=== PATIENT | male | born 1960 | race Hispanic/Latino ===

== ENCOUNTER 2018-03-07 10:03 | Observation (INO) | payer OTHER ==
--- NOTE | 2018-03-07 10:11 | ED PDOC ---
Arrival/HPI - General Chief Complaint: Chest Pain Time Seen by Provider: 03/07/18 10:10 Historian: Patient, Spouse - History of Present Illness Narrative History of Present Illness (Text): 03/07/18 10:15 58 year old male, whose PMH includes hypertension and cardiac catheterization, who presents to the emergency department complaining of non-radiating substernal chest pain rate 7 out of 10 since this morning at 03:00 AM. Patient reports he woke up from the pain and associates this symptom with shortness of breath on exertion, with questionable diaphoresis. Patient states speaking with Dr. Dfuf, his risk officer (prior to emergency department arrival), and was instructed to come to the emergency department for further evaluation. He notes Dr. Duff performed a catheterization 4 years ago, which was negative. Patient denies dizziness, palpitations, headache, LOC, nausea, vomiting, diarrhea, abdominal pain, dysuria, or other complaints. pt is here for further eval. PMD: Dr. Albrecht Gas Operations Analyst: Dr. Duff Time/Duration: 4-6 hours Symptom Onset: Sudden Symptom Course: Unchanged Quality: Pressure, Tightness Severity Level: 7 Activities at Onset: Rest Context: Exertion (shortness of breath), Home Past Medical History - Provider Review Nursing Documentation Reviewed: Yes - Travel History Have you recently traveled outside [place] w/in the past 3 mons?: No - Infectious Disease Hx of Infectious Diseases: None - Tetanus Immunization Tetanus Immunization: Unknown - Past Medical History Past Medical History: No Previous - Cardiac Hx Hypertension: Yes - Psychiatric Hx Depression: No Hx Emotional Abuse: No Hx Physical Abuse: No Hx Substance Use: No - Past Surgical History Past Surgical History: Non-Contributing - Surgical History Hx Tonsillectomy: Yes - Suicidal Assessment Feels Threatened In Home Enviroment: No Family/Social History - Physician Review Nursing Documentation Reviewed: Yes Family/Social History: Unknown Family HX Smoking Status: Never Smoked Hx Alcohol Use: Yes Hx Substance Use: No Hx Substance Use Treatment: No Allergies/Home Meds Allergies/Adverse Reactions: Allergies No Known Allergies Allergy (Verified 03/07/18 10:13) Home Medications: Home Meds Medication Instructions Recorded Confirmed Irbesartan [Avapro] 150 mg PO DAILY 10/30/13 03/07/18 Nebivolol [Bystolic] 10 mg PO DAILY 03/07/18 03/07/18 Pantoprazole Sodium [Protonix] 40 mg PO DAILY 03/07/18 03/07/18 Review of Systems - Review of Systems Constitutional: absent: Fevers Eyes: Normal ENT: absent: Sinus Congestion Respiratory: SOB (on exertion ). absent: Cough Cardiovascular: Chest Pain (non-radiating ) Gastrointestinal: absent: Abdominal Pain, Vomiting Genitourinary Male: absent: Dysuria Musculoskeletal: absent: Back Pain Skin: absent: Rash Neurological: absent: Headache, Dizziness Endocrine: Diaphoresis (possible ) Hemo/Lymphatic: Normal Psychiatric: Normal Physical Exam - Physical Exam Narrative Physical Exam (Text): 03/07/18 General: alert/awake, GCS = 15, oriented x 3, resting in bed, uncomfortable, cooperative, interactive; NAD Head: NC/AT EYE: PERRLA, EOMI, sclera anicteric, no nystagmus, no photophobia; visual field intact b/l Facial: WNL Oral: uvula/tongue are midline, no exudate/lesions, no drooling/stridor, no dysphonia; intact dentitions NECK: intact ROM, no midline tenderness, no nuchal rigidity, no meningeal signs ; no step off Chest: CTA b/l, no w/r/r; no tachypenia, no accessory muscle use noted Chest Wall: no crepitus, no lesions, no gross deformities, no focal tenderness Cardiac: +S1, +S2, no m/r/r, no tachycardia Abdominal: +BS, soft/nd/nt, well nourished/obese patient; no masses/rebound/ guarding/rigidity; no silver's sign, no mcburney's point tenderness Extremities: intact ROM, strength 5/5 grossly intact in all limbs, neurovasc intact b/l; + ambulatory; reflex +2/2; no nestor's sign b/l BACK: no step off, no midline tenderness, NO crepitus, no gross deformities noted; Intact ROM SKIN: cap refill < 1 sec, no ulcerations, no petechiae, no rashes NEURO: CNII-XII WNL, no facial asymmetries, no slurr speech, oriented x 3 NIH stroke scale ~ 0 Psych: normal insight, normal affect; follows command with ease Vital Signs Reviewed: Yes Vital Signs Temp Pulse Resp BP BP Pulse Ox 03/07/18 10:20 177/74 H 03/07/18 10:11 98.1 F 62 16 174/74 H 97 Temperature: Afebrile Blood Pressure: Hypertensive Pulse: Regular Respiratory Rate: Normal Appearance: Positive for: Well-Appearing, Non-Toxic, Uncomfortable Pain Distress: None Mental Status: Positive for: Alert and Oriented X 3 - Systems Exam Head: Present: Atraumatic, Normocephalic Medical Decision Making ED Course and Treatment: 03/07/18 Impression: 58 year old male who appears uncomfortable complaining of chest pain and shortness of breath since 03:00 AM this morning. Differential Diagnosis included but are not limited to: ACS, unlikely dissection/aneurysm, unlikely pulmonary embolism Plan: -- EKG -- Chest X-ray -- Labs -- Aspirin, Nitroglycerin -- Urinalysis -- Reassess and disposition Progress Notes: 03/07/18 11:30 Spoke to , who is the risk officer for patient, and who was made aware and would like to take the patient to the organic lab worker today; Dr Duff states if patient didn't take his Plavix today to give patient his plavix. Would like patient admitted to his PCP. 03/07/18 11:40 Spoke to , hospitalists prevention specialist, made aware and agrees to patient admission under her service. 1200pm pt/family are made aware of pt's medical results agrees with admission/observation pt continues to have mild chest tightness/aches/pain vitals signs: stable Re-evaluation Time: 11:45 Reassessment Condition: Improving,but remains with symptoms - Lab Interpretations Lab Results: 03/07/18 10:30 03/07/18 10:30 Lab Results 03/07/18 10:40: Urine Color Yellow, Urine Appearance Clear, Urine pH 6.0, Ur Specific [place] 1.025, Urine Protein Negative, Urine Glucose (UA) Negative, Urine Ketones Negative, Urine Blood Negative, Urine Nitrate Negative, Urine Bilirubin Negative, Urine Urobilinogen 0.2, Ur Leukocyte Esterase Negative 03/07/18 10:30: PT 12.9 H, INR 1.12, APTT 29.2 03/07/18 10:30: Sodium 143, Potassium 4.4, Chloride 106, Carbon Dioxide 27, Anion Gap 14, BUN 16, Creatinine 0.8, Est GFR ( Amer) > 60, Est GFR (Non- Af Amer) > 60, Random Glucose 103, Calcium 8.9, Magnesium 1.9, Total Bilirubin 1.1, AST 91 H, ALT 203 H, Alkaline Phosphatase 77, Lactate Dehydrogenase 480, Total Creatine Kinase 56, Troponin I < 0.01, NT-Pro-B Natriuret Pep 76.4, Total Protein 7.2, Albumin 4.2, Globulin 3.0, Albumin/Globulin Ratio 1.4 03/07/18 10:30: WBC 4.0 L, RBC 4.99, Hgb 15.7, Hct 43.3, MCV 86.8, MCH 31.5, MCHC 36.3, RDW 13.2, Plt Count 155, MPV 11.6 H, Gran % 47.9 L, Lymph % (Auto) 40.5 H, [place] % (Auto) 9.3 H, Eos % (Auto) 2.0, Baso % (Auto) 0.3, Gran # 1.91, Lymph # (Auto) 1.6, [place] # (Auto) 0.4, Eos # (Auto) 0.1, Baso # (Auto) 0.01 I have reviewed the lab results: Yes Interpretation: Abnormal lab values (elevated LFTs) - RAD Interpretation Narrative RAD Interpretations (Text): 03/07/18 10:35 Chest X-ray: Creator : Esau Sena MD COMPARISON: 10/30/2013 FINDINGS: LUNGS: No active pulmonary disease. PLEURA: No significant pleural effusion identified, no pneumothorax apparent. CARDIOVASCULAR: Mild cardiomegaly OSSEOUS STRUCTURES: No significant abnormalities. VISUALIZED UPPER ABDOMEN: Normal. OTHER FINDINGS: None. IMPRESSION: No active disease. Radiology Orders: 03/07/18 10:17 CHEST PORTABLE [RAD] Stat Chair Spring Assembler: Radiologist - EKG Interpretation EKG Interpretation (Text): 03/07/18 12:25 NSR at 60 bpm, LAD, no ectopy, qs in leads III/F/V1, non-specific st-t changes, ABNL EKG; no gross changes compare with old ekg 10/2013 Interpreted by ED Physician: Yes Type: 12 lead EKG Comparison: Similar to previous EKG - Medication Orders Current Medication Orders: Discontinued Medications Aspirin (Aspirin Chewable) 81 mg PO STAT STA Stop: 03/07/18 10:17 Last Admin: 03/07/18 10:42 Dose: Clopidogrel Bisulfate (Plavix) 300 mg PO STAT STA Stop: 03/07/18 12:22 Nitroglycerin (Nitrostat Sl Tab) 0.4 mg SL STAT STA Stop: 03/07/18 10:17 Last Admin: 03/07/18 10:44 Dose: 0.4 mg Nitroglycerin (Nitro-Bid 2% Oint) 1 ea TOP STAT STA Stop: 03/07/18 10:17 Last Admin: 03/07/18 10:44 Dose: 1 ea - Scribe Statement The provider has reviewed the documentation as recorded by the Rossanaibe Samantha Montalvo Provider Scribe Attestation: All medical record entries made by the Scribe were at my direction and personally dictated by me. I have reviewed the chart and agree that the record accurately reflects my personal performance of the history, physical exam, medical decision making, and the department course for this patient. I have also personally directed, reviewed, and agree with the discharge instructions and disposition. Disposition/Present on Arrival - Present on Arrival Any Indicators Present on Arrival: No History of DVT/PE: No History of Uncontrolled Diabetes: No Urinary Catheter: No History of Decub. Ulcer: No History Surgical Site Infection Following: None - Disposition Have Diagnosis and Disposition been Completed?: Yes Diagnosis: Chest pain with moderate risk for cardiac etiology, Elevated blood pressure reading Disposition: HOSPITALIZED Disposition Time: 11:45 Patient Plan: Admission, Observation, Telemetry Patient Problems: Current Active Problems Problem Status Onset Chest pain with moderate risk for cardiac etiology Acute Elevated blood pressure reading Acute Condition: STABLE Discharge Instructions (ExitCare): Chest Pain (ED), Hypotension (ED), Hypertension (ED) Print Language: KHMER Referrals: Neo Moses MD [Primary Care Provider] - Follow up with primary Forms: [employer] ([place] Citizen)
[2018-03-07] MEDS ORDERED: Nitroglycerin 2% Ointment Foilpak UD TOP STA (10:16)
--- NOTE | 2018-03-07 10:36 | RAD ---
Date of service: 03/07/2018 HISTORY: chest pain COMPARISON: 10/30/2013 FINDINGS: LUNGS: No active pulmonary disease. PLEURA: No significant pleural effusion identified, no pneumothorax apparent. CARDIOVASCULAR: Mild cardiomegaly OSSEOUS STRUCTURES: No significant abnormalities. VISUALIZED UPPER ABDOMEN: Normal. OTHER FINDINGS: None. IMPRESSION: No active disease.
[2018-03-07 10:55] LABS: URINE BILIRUBIN NEGATIVE (NEGATIVE); URINE BLOOD NEGATIVE (NEGATIVE); URINE GLUCOSE (UA) NEGATIVE (NEGATIVE); URINE LEUKOCYTE ESTERASE NEGATIVE Leu/uL (NEGATIVE); URINE PROTEIN NEGATIVE mg/dL (<30 mg/dL); URINE UROBILINOGEN 0.2 E.U./dL (<1 E.U./dL)
[2018-03-07 10:58] LABS: URINE APPEARANCE CLEAR (CLEAR); URINE COLOR YELLOW (YELLOW)
[2018-03-07 11:01] LABS: INR 1.12; PARTIAL THROMBOPLASTIN TIME 29.2 Seconds (25.1-36.5); PROTHROMBIN TIME 12.9 SECONDS (9.4-12.5)
[2018-03-07 11:03] LABS: ALB/GLOB RATIO 1.4 (1.1-1.8); ALBUMIN 4.2 g/dL (3.0-4.8); ALT/SGPT 203 U/L (7-56); AST/SGOT 91 U/L (17-59); BLOOD UREA NITROGEN 16 mg/dL (7-21); CALCIUM 8.9 mg/dL (8.4-10.5); GFR AFRICAN-AMERICAN > 60; GFR NON-AFRICAN AMERICAN > 60
[2018-03-07 11:14] LABS: B-TYPE NATRIURETIC PEPTIDE 76.4 pg/mL (0-450); TROPONIN I < 0.01 ng/mL
[2018-03-07 11:19] LABS: BASO # 0.01 K/mm3 (0.0-2.0); BASO % 0.3 % (0.0-3.0); EOS # 0.1 (0.0-0.7); GRAN # 1.91 (1.4-6.5); GRAN % 47.9 % (50.0-68.0); HEMOGLOBIN 15.7 g/dL (14.0-18.0); LYMPH # 1.6 (1.2-3.4); LYMPH % 40.5 % (22.0-35.0); MEAN CELL VOLUME 86.8 fl (80.0-105.0); MEAN CORPUSCULAR HEMOGLOBIN 31.5 pg (25.0-35.0); MEAN CORPUSCULAR HGB CONC 36.3 g/dl (31.0-37.0); MEAN PLATELET VOLUME 11.6 fl (7.0-11.0); MONO # 0.4 (0.1-0.6); MONO % 9.3 % (1.0-6.0); RBC 4.99 10^6/uL (3.5-6.1); RED CELL DISTRIBUTION WIDTH 13.2 % (11.5-14.5)
[2018-03-07] MEDS ORDERED: Lidocaine 2% Inj (20ml) ONE (13:55)
[2018-03-07] MEDS ORDERED: Iodixanol 320 MG/ML 100 ML BOTTLE IV ONE (13:56)
[2018-03-07] MEDS ORDERED: Iodixanol 320 MG/ML 200 ML BOTTLE IV ONE (13:56)
[2018-03-07] MEDS ORDERED: Nitroglycerin 50mg in D5W 0 MG/0 ML BOTTLE IV ONE (13:56)
[2018-03-07] MEDS ORDERED: Iohexol 350mgl/ml 50 ML ONE (13:56)
--- NOTE | 2018-03-07 14:22 | CP.PCM.HP ---
<RodriguesLetitiaManuel - Last Filed: 03/07/18 13:43> History of Present Illness - History of Present Illness History of Present Illness: Manuel Rodrigues D.O. PGY2, Hospitalist Service Mr. Zuniga is a 58 year old male with a past medical history significant for HTN and GERD who presents with a chief complaint of chest pain that began this morning. The patient describes the pain as non-radiating 7/10 substernal pressure that awoke him from his sleep at approximately 0300 this morning. He reports that the pain has been continuous since that time without any changes in intensity and denies any aggravating or alleviating factors. The patient denies ever having this pain in the past. Patients reports that shortly after the onset of the pain the patient was given 600mg of Plavix. This provided no relief of patients symptoms. Shortly after this, the patient spoke with his paper reclaiming machine operator, Dr. Duff, who recommended that the patient be seen in the ED for further evaluation. Prior to coming to the ED, he also took 325mg of ASA. He endorses that for the past several days he has also had LAUREANO when climbing stairs but denies any recent illness, fever, chills, headache, changes in his vision, palpitations, leg swelling, SOB at rest, cough, wheezing, sputum production, abdominal pain, N/V/D/C, melena, changes in urine output, skin changes, or any numbness/tingling/weakness of any extremity. While in the ED, patient received ASA 81mg, Plavix 300mg, and nitroglycerin. An EKG showed NSR at 58 BPM with an inferior infarct of undetermined age, and minimal voltage criteria of LVH. Cardiology determined that the patient needed cardiac cath. 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 Moses Environmental Studies Professor: Dr. Duff Present on Admission - Present on Admission Any Indicators Present on Admission: No Review of Systems - Review of Systems Review of Systems: As stated in HPI, otherwise negative Past Patient History - Infectious Disease Hx of Infectious Diseases: None - Tetanus Immunizations Tetanus Immunization: Unknown - Past Social History Smoking Status: Never Smoked - CARDIAC Hx Hypertension: Yes - PSYCHIATRIC Hx Depression: No Hx Emotional Abuse: No Hx Physical Abuse: No Hx Substance Use: No - SURGICAL HISTORY Hx Tonsillectomy: Yes Meds Allergies/Adverse Reactions: Allergies Allergy/AdvReac Type Severity Reaction Status Date / Time No Known Allergies Allergy Verified 03/07/18 10:13 Physical Exam - Constitutional Appears: Non-toxic, No Acute Distress - Head Exam Head Exam: ATRAUMATIC, NORMOCEPHALIC - Eye Exam Eye Exam: EOMI, Normal appearance, PERRL - ENT Exam ENT Exam: Mucous Membranes Moist, Normal Exam - Neck Exam Neck exam: Positive for: Full Rom, Normal Inspection. Negative for: Lymphadenopathy - Respiratory Exam Respiratory Exam: Clear to Auscultation Bilateral, NORMAL BREATHING PATTERN. absent: Accessory Muscle Use, Chest Wall Tenderness, Decreased Breath Sounds, Prolonged Expiratory Phase, Rales, Rhonchi, Wheezes, Respiratory Distress, Stridor - Cardiovascular Exam Cardiovascular Exam: REGULAR RHYTHM, RRR, +S1, +S2. absent: Bradycardia, Tachycardia, Clicks, Diastolic murmur, Gallop, Irregular Rhythm, JVD, Rubs, +S4 , Systolic Murmur - GI/Abdominal Exam GI & Abdominal Exam: Normal Bowel Sounds, Soft. absent: Tenderness - Extremities Exam Extremities exam: Positive for: full ROM, normal capillary refill, normal inspection. Negative for: calf tenderness, joint swelling, pedal edema, tenderness, pedal pulses present - Back Exam Back exam: FULL ROM, NORMAL INSPECTION. absent: CVA tenderness (L), CVA tenderness (R) - Neurological Exam Neurological exam: Alert, Oriented x3 - Psychiatric Exam Psychiatric exam: Normal Affect, Normal Mood - Skin Skin Exam: Dry, Intact, Normal Color, Warm Results - Vital Signs Recent Vital Signs: Last Vital Signs Temp 98.0 F 03/07/18 12:49 Pulse 61 03/07/18 12:49 Resp 18 03/07/18 12:49 BP 145/85 03/07/18 12:50 Pulse Ox 100 03/07/18 12:49 - Labs Result Diagrams: 03/07/18 10:30 03/07/18 10:30 Assessment & Plan - Assessment and Plan (Free Text) Assessment: 58 year old male with a past medical history significant for HTN and GERD who presents with a chief complaint of chest pain that began this morning. An EKG showed NSR at 58 BPM with an inferior infarct of undetermined age, and minimal voltage criteria of LVH and initial troponin. Cardiology determined that the patient will need cardiac cath. Plan: 1. Unstable Angina -Loading doses of ASA and Plavix given in ED pending Cardiac Cath -Chest X-Ray showed no active disease -EKG showed NSR at 58 BPM with an inferior infarct of undetermined age, and minimal voltage criteria of LVH -Initial troponin negative -Lipid panel and A1c pending -Continue home ASA 81mg PO daily -Cardiology consulted, all recommendations appreciated 2. History of HTN -Continue home Irbesartan and Bystolic 3. History of GERD -Continue home Protonix GI Prophylaxis: Protonix DVT Prophylaxis: Lovenox Patient seen and case discussed with attending, Dr. Holliday. Leslie PGY2 - Date & Time Date: 03/07/18 Time: 14:24 Decision To Admit - Pt Status Changed To: Hospital Disposition Of: Observation - . Bed Request Type: Telemetry <Ayla Holliday - Last Filed: 03/07/18 15:48> Results - Vital Signs Recent Vital Signs: Last Vital Signs Temp 98.0 F 03/07/18 12:49 Pulse 61 03/07/18 12:49 Resp 18 03/07/18 12:49 BP 145/85 03/07/18 12:50 Pulse Ox 100 03/07/18 12:49 - Labs Result Diagrams: 03/07/18 10:30 03/07/18 10:30 Attending/Attestation - Attestation I have personally seen and examined this patient.: Yes I have fully participated in the care of the patient.: Yes I have reviewed all pertinent clinical information: Yes Notes (Text): 03/07/18 15:43 58 year old male with past medical history of hypertension and GERD who presents with complaint of chest pain which began this morning. Initial troponin was negative. EKG reviewed as above. Cardiology was consulted who plans for cardiac catherization today. Patient received aspirin and plavix in ER. Continue with home medications. Lipid panel ordered for AM. LFTs mildly elevated. Will continue to monitor and check hepatitis panel. Ayla Holliday MD Hospitalist.
[2018-03-07] MEDS ORDERED: Midazolam 2 MG/2 ML VIAL ONE ×3 (14:25→14:43)
[2018-03-07] MEDS ORDERED: Sodium Chloride 0.9% 1,000 ML IV SCH (15:45)
[2018-03-07 18:31] VITALS: BMI 37.6
[2018-03-07] MEDS ORDERED: Pneumococcal 23-Valent Vaccine IM ONE (18:32)
--- NOTE | 2018-03-07 18:43 | CARDCATH ---
Copied To: Karthik Duff MD Attending MD: Karthik Duff MD PROCEDURE DATE: 03/07/2018 HISTORY: The patient is a 58-year-old male with a history of hypertension, obesity, and hypercholesterolemia who developed earlier this week chest discomfort. This morning, the patient continued to experience increasing symptoms and came to the emergency room. Because of his increased risk and his progressive symptoms at rest, an emergency cardiac catheterization was performed. PROCEDURE: Left heart catheterization with coronary arteriography and left ventriculogram. The right femoral artery was cannulated with a 6-Lao sheath. There were no complications. I performed moderate sedation, which included the presence of an independent trained observer that assisted in monitoring the patient's level of consciousness and physiologic status. After administration of Versed and fentanyl, my intra service time was 15 minutes. The findings on catheterization revealed a right dominant circulation. The RCA revealed minimal intimal irregularities without critical lesions. The left main artery was unremarkable. The LAD and diagonal vessels were free of significant disease. The circumflex artery and obtuse marginal branches were unremarkable. LV function was normal with an EF of 70%. Angio-Seal was used to close the femoral artery site. The patient tolerated the procedure well. IMPRESSION: 1. In summary, the procedure revealed unremarkable coronary arteries. 2. Normal LV function. PLAN: Given these findings, the patient's progressive chest pain is not of cardiac origin. However, we will consider a GI workup given the severity of his symptoms. The patient will need to undergo a cardiac risk reduction program, which needs to include cessation of smoking, decreasing his alcohol intake as well as losing weight and reducing the fat content in his body. Karthik Duff MD
[2018-03-08 01:46] VITALS: RESP 20
[2018-03-08] MEDS ORDERED: Pantoprazole 40 mg EC Tab PO SCH (06:00)
[2018-03-08 06:32] VITALS: BP 132/83; PULSE 72; TEMP 98.4; O2SAT 100
[2018-03-08 07:20] LABS: BASO # 0.01 K/mm3 (0.0-2.0); BASO % 0.2 % (0.0-3.0); EOS # 0.1 (0.0-0.7); EOS % 1.7 % (1.5-5.0); GRAN # 2.71 (1.4-6.5); GRAN % 57.8 % (50.0-68.0); HEMOGLOBIN 15.3 g/dL (14.0-18.0); LYMPH # 1.5 (1.2-3.4); LYMPH % 31.1 % (22.0-35.0); MEAN CELL VOLUME 85.9 fl (80.0-105.0); MEAN CORPUSCULAR HEMOGLOBIN 31.4 pg (25.0-35.0); MEAN CORPUSCULAR HGB CONC 36.5 g/dl (31.0-37.0); MEAN PLATELET VOLUME 11.4 fl (7.0-11.0); MONO # 0.4 (0.1-0.6); MONO % 9.2 % (1.0-6.0); RBC 4.88 10^6/uL (3.5-6.1); WHITE BLOOD COUNT 4.7 10^3/ul (4.5-11.0)
[2018-03-08 07:30] LABS: ALB/GLOB RATIO 1.4 (1.1-1.8); ALBUMIN 3.8 g/dL (3.0-4.8); ALT/SGPT 179 U/L (7-56); AST/SGOT 75 U/L (17-59); BLOOD UREA NITROGEN 14 mg/dL (7-21); CALCIUM 8.8 mg/dL (8.4-10.5); GFR AFRICAN-AMERICAN > 60; GFR NON-AFRICAN AMERICAN > 60; HDL CHOLESTEROL 42 mg/dL (29-60)
[2018-03-08 07:40] LABS: LDL CHOLESTEROL 107 mg/dL (0-129)
[2018-03-08] MEDS ORDERED: Enoxaparin 40 mg Syringe SC SCH (10:00)
[2018-03-08 12:30] LABS: HEPATITIS B SURFACE AG Negative (NEGATIVE)
[2018-03-08 12:36] LABS: HEPATITIS B CORE AB NEGATIVE (NEGATIVE)
[2018-03-08 12:48] LABS: HEPATITIS C ANTIBODY NEGATIVE (NEGATIVE)
[2018-03-08 13:00] LABS: HEPATITIS A IGM NEGATIVE (NEGATIVE)
--- NOTE | 2018-03-08 13:07 | PN ---
Copied To: Karthik Duff MD Attending MD: Karthik Duff MD DATE: 03/08/2018 CARDIOLOGY FOLLOWUP SUBJECTIVE: The patient is asymptomatic post catheterization. The right groin is stable. PHYSICAL EXAMINATION: VITAL SIGNS: Blood pressure is 132/83, the heart rate is in the 70s. NECK: Negative JVD. LUNGS: Without rales. HEART: Reveals S1, S2. EXTREMITIES: Without edema. LABORATORY DATA: Hemoglobin is 15. BUN and creatinine are unremarkable. The glucose is 118. IMPRESSION: 1. Stable post cardiac catheterization. 2. Borderline diabetes mellitus. 3. Hypertension. 4. Chest pain. 5. Elevated liver function tests, which are likely due to his heavy alcohol intake. PLAN: Given these findings, the patient is stable for discharge. I have discussed the cardiac risk reduction program with the patient. I have asked that he reduce his alcohol intake dramatically. Followup and instructions were given to the patient in detail. Karthik Duff MD
--- NOTE | 2018-03-08 15:53 | CP.PCM.DIS ---
<Jah Whitfield - Last Filed: 03/08/18 16:57> Provider - Provider Date of Admission: 03/07/18 12:11 Attending physician: Ayla Holliday MD Primary care physician: Neo Moses MD Consults: Dr. Duff, cardiology Time Spent in preparation of Discharge (in minutes): 45 Hospital Course - Lab Results Lab Results: Most Recent Lab Values WBC 4.7 10^3/ul (4.5-11.0) 03/08/18 06:30 RBC 4.88 10^6/uL (3.5-6.1) 03/08/18 06:30 Hgb 15.3 g/dL (14.0-18.0) 03/08/18 06:30 Hct 41.9 % (42.0-52.0) L 03/08/18 06:30 MCV 85.9 fl (80.0-105.0) 03/08/18 06:30 MCH 31.4 pg (25.0-35.0) 03/08/18 06:30 MCHC 36.5 g/dl (31.0-37.0) 03/08/18 06:30 RDW 13.0 % (11.5-14.5) 03/08/18 06:30 Plt Count 151 10^3/uL (120.0-450.0) 03/08/18 06:30 MPV 11.4 fl (7.0-11.0) H 03/08/18 06:30 Gran % 57.8 % (50.0-68.0) 03/08/18 06:30 Lymph % (Auto) 31.1 % (22.0-35.0) 03/08/18 06:30 [place] % (Auto) 9.2 % (1.0-6.0) H 03/08/18 06:30 Eos % (Auto) 1.7 % (1.5-5.0) 03/08/18 06:30 Baso % (Auto) 0.2 % (0.0-3.0) 03/08/18 06:30 Gran # 2.71 (1.4-6.5) 03/08/18 06:30 Lymph # (Auto) 1.5 (1.2-3.4) 08/02/18 06:30 [place] # (Auto) 0.4 (0.1-0.6) 03/08/18 06:30 Eos # (Auto) 0.1 (0.0-0.7) 03/08/18 06:30 Baso # (Auto) 0.01 K/mm3 (0.0-2.0) 03/08/18 06:30 PT 12.9 SECONDS (9.4-12.5) H 03/07/18 10:30 INR 1.12 03/07/18 10:30 APTT 29.2 Seconds (25.1-36.5) 03/07/18 10:30 Sodium 141 mmol/L (132-148) 03/08/18 06:30 Potassium 3.9 mmol/L (3.6-5.0) 03/08/18 06:30 Chloride 106 mmol/L (98-107) 03/08/18 06:30 Carbon Dioxide 28 mmol/L (21-33) 03/08/18 06:30 Anion Gap 11 (10-20) 03/08/18 06:30 BUN 14 mg/dL (7-21) 03/08/18 06:30 Creatinine 0.8 mg/dl (0.8-1.5) 03/08/18 06:30 Est GFR ( Amer) > 60 03/08/18 06:30 Est GFR (Non-Af Amer) > 60 03/08/18 06:30 Random Glucose 118 mg/dL (70-110) H 03/08/18 06:30 Hemoglobin A1c 5.8 % (4.2-6.5) 03/08/18 06:30 Calcium 8.8 mg/dL (8.4-10.5) 03/08/18 06:30 Magnesium 1.9 mg/dL (1.7-2.2) 03/07/18 10:30 Total Bilirubin 1.2 mg/dL (0.2-1.3) 03/08/18 06:30 AST 75 U/L (17-59) H 03/08/18 06:30 ALT 179 U/L (7-56) H 03/08/18 06:30 Alkaline Phosphatase 73 U/L (38-126) 03/08/18 06:30 Lactate Dehydrogenase 480 U/L (333-699) 03/07/18 10:30 Total Creatine Kinase 56 U/L (35-230) 03/07/18 10:30 Troponin I < 0.01 ng/mL 03/07/18 10:30 NT-Pro-B Natriuret Pep 76.4 pg/mL (0-450) 03/07/18 10:30 Total Protein 6.6 g/dL (5.8-8.3) 03/08/18 06:30 Albumin 3.8 g/dL (3.0-4.8) 03/08/18 06:30 Globulin 2.8 gm/dL 03/08/18 06:30 Albumin/Globulin Ratio 1.4 (1.1-1.8) 03/08/18 06:30 Triglycerides 104 mg/dL (35-160) 03/08/18 06:30 Cholesterol 166 mg/dL (130-200) 03/08/18 06:30 LDL Cholesterol Direct 107 mg/dL (0-129) 03/08/18 06:30 HDL Cholesterol 42 mg/dL (29-60) 03/08/18 06:30 Urine Color Yellow (YELLOW) 03/07/18 10:40 Urine Appearance Clear (CLEAR) 03/07/18 10:40 Urine pH 6.0 (4.7-8.0) 03/07/18 10:40 Ur Specific Vida 1.025 (1.005-1.035) 03/07/18 10:40 Urine Protein Negative mg/dL (<30 mg/dL) 03/07/18 10:40 Urine Glucose (UA) Negative mg/dL (NEGATIVE) 03/07/18 10:40 Urine Ketones Negative mg/dL (NEGATIVE) 03/07/18 10:40 Urine Blood Negative (NEGATIVE) 03/07/18 10:40 Urine Nitrate Negative (NEGATIVE) 03/07/18 10:40 Urine Bilirubin Negative (NEGATIVE) 03/07/18 10:40 Urine Urobilinogen 0.2 E.U./dL (<1 E.U./dL) 03/07/18 10:40 Ur Leukocyte Esterase Negative Steve/uL (NEGATIVE) 03/07/18 10:40 Hepatitis A IgM Ab Negative (NEGATIVE) 03/07/18 10:30 Hep Bs Antigen Negative (NEGATIVE) 03/07/18 10:30 Hep B Core IgM Ab Negative (NEGATIVE) 03/07/18 10:30 Hepatitis C Antibody Negative (NEGATIVE) 03/07/18 10:30 - Hospital Course Hospital Course: Jah Whitfield, PGY-1 Discharge Summary for Hospitalist Service 58 year old M with past medical history of hypertension and GERD who presented with chest pain on 03/07/18. The patient describes the pain as non-radiating 7/10 substernal pressure that awoke him from his sleep at approximately 0300 on . He reports that the pain had been continuous without any changes in intensity and denies any aggravating or alleviating factors. The patient denies ever having this pain in the past. Patients reports that shortly after the onset of the pain the patient was given 600mg of Plavix. This provided no relief of patients symptoms. In ED, cardiac workup was begun. Initial troponin was negative and EKG showed NSR at 58 BPM with an inferior infarct of undetermined age, and minimal voltage criteria of LVH. Loading dose of aspirin and plavix was given. Cardiology was consulted at that time and Dr. Duff decided to pursue cardiac catheterization. Cardiac cath was performed and revealed unremarkabale coronary arteries and normal LV function with an EF of 70%. Patient was also found to have elevated liver function tests, so a hepatitis panel was ordered. It came back that Hep A, B and C studies were all negative and patient was called with results. UA was negative. CXR showed no active disease. Patient was discharged hemodynamically stable with aspirin, irbesartan, nebivolol, and protonix. Statin was held due to elevated liver enzymes. Patient denied chest pain, shortness of breath, palpitations, leg swelling, headache, dizziness, fevers, chills, and bleeding from his catheterization site in R groin. Patient was encouraged to follow up with Dr. Moses and family's fabricator artificial breast Dr. Gonzalez in [place] for continued evaluation of his liver function. Patient's questions were answered fully and to patient's satisfaction. Patient was educated about weight loss and cholesterol control. Patient and his demonstrated understanding and were prepared for discharged. Please refer to chart for further details. Patient seen, case reviewed, and plan discussed with Dr. Holliday. Discharge Exam - Head Exam Head Exam: ATRAUMATIC, NORMOCEPHALIC - Eye Exam Eye Exam: EOMI, Normal appearance Pupil Exam: PERRL - ENT Exam ENT Exam: Mucous Membranes Moist - Neck Exam Neck exam: Normal Inspection - Respiratory Exam Respiratory Exam: Clear to PA & Lateral, NORMAL BREATHING PATTERN, UNREMARKABLE. absent: Rales, Rhonchi, Wheezes, Respiratory Distress, Stridor - Cardiovascular Exam Cardiovascular Exam: REGULAR RHYTHM, RRR, +S1, +S2. absent: Tachycardia, Gallop - GI/Abdominal Exam GI & Abdominal Exam: Normal Bowel Sounds, Soft. absent: Guarding, Organomegaly , Rebound, Tenderness - Exam Additional comments: R groin where femoral line was placed showed a 1 cm small subcutaneous echymosis. No active bleeding appreciated. - Extremities Exam Extremities exam: full ROM, joint swelling (trace bilaterally) - Neurological Exam Neurological exam: Alert, Oriented x3 - Psychiatric Exam Psychiatric exam: Normal Affect, Normal Mood - Skin Skin Exam: Dry, Intact, Normal Color, Warm Discharge Plan - Follow Up Plan Condition: STABLE Disposition: HOME/ ROUTINE Instructions: Cardiac Catheterization, Heart Healthy Diet, Chest Pain, Chest Pain (DC), Chest Pain (GEN), Hypertension (ED) Additional Instructions: Please follow up with your primary care doctor, Dr. Moses, within one to two weeks for post discharge follow up. Please follow up with your woolen mill utility worker, Dr. Dfuf, as scheduled. Please follow up with your fabricator artificial breast, Dr. Gonzalez, as scheduled. Please continue all home medications as currently dosed. Please hold your statin (cholesterol medication) due to elevated liver enzymes. Please discuss restarting this medication with your primary care doctor and woolen mill utility worker. Should your symptoms worsen or persist, please seek emergency medical attention. Referrals: Neo Moses MD [Primary Care Provider] - <Ayla Holliday - Last Filed: 03/08/18 18:28> Provider - Provider Date of Admission: 03/07/18 12:11 Attending physician: Ayla Holliday MD Primary care physician: Neo Moses MD Hospital Course - Lab Results Lab Results: Most Recent Lab Values WBC 4.7 10^3/ul (4.5-11.0) 03/08/18 06:30 RBC 4.88 10^6/uL (3.5-6.1) 03/08/18 06:30 Hgb 15.3 g/dL (14.0-18.0) 03/08/18 06:30 Hct 41.9 % (42.0-52.0) L 03/08/18 06:30 MCV 85.9 fl (80.0-105.0) 03/08/18 06:30 MCH 31.4 pg (25.0-35.0) 03/08/18 06:30 MCHC 36.5 g/dl (31.0-37.0) 03/08/18 06:30 RDW 13.0 % (11.5-14.5) 03/08/18 06:30 Plt Count 151 10^3/uL (120.0-450.0) 03/08/18 06:30 MPV 11.4 fl (7.0-11.0) H 03/08/18 06:30 Gran % 57.8 % (50.0-68.0) 03/08/18 06:30 Lymph % (Auto) 31.1 % (22.0-35.0) 03/08/18 06:30 [place] % (Auto) 9.2 % (1.0-6.0) H 03/08/18 06:30 Eos % (Auto) 1.7 % (1.5-5.0) 03/08/18 06:30 Baso % (Auto) 0.2 % (0.0-3.0) 03/08/18 06:30 Gran # 2.71 (1.4-6.5) 03/08/18 06:30 Lymph # (Auto) 1.5 (1.2-3.4) 03/08/18 06:30 [place] # (Auto) 0.4 (0.1-0.6) 03/08/18 06:30 Eos # (Auto) 0.1 (0.0-0.7) 03/08/18 06:30 Baso # (Auto) 0.01 K/mm3 (0.0-2.0) 03/08/18 06:30 PT 12.9 SECONDS (9.4-12.5) H 03/07/18 10:30 INR 1.12 03/07/18 10:30 APTT 29.2 Seconds (25.1-36.5) 03/07/18 10:30 Sodium 141 mmol/L (132-148) 03/08/18 06:30 Potassium 3.9 mmol/L (3.6-5.0) 03/08/18 06:30 Chloride 106 mmol/L (98-107) 03/08/18 06:30 Carbon Dioxide 28 mmol/L (21-33) 03/08/18 06:30 Anion Gap 11 (10-20) 03/08/18 06:30 BUN 14 mg/dL (7-21) 03/08/18 06:30 Creatinine 0.8 mg/dl (0.8-1.5) 03/08/18 06:30 Est GFR ( Amer) > 60 03/08/18 06:30 Est GFR (Non-Af Amer) > 60 03/08/18 06:30 Random Glucose 118 mg/dL (70-110) H 03/08/18 06:30 Hemoglobin A1c 5.8 % (4.2-6.5) 03/08/18 06:30 Calcium 8.8 mg/dL (8.4-10.5) 03/08/18 06:30 Magnesium 1.9 mg/dL (1.7-2.2) 03/07/18 10:30 Total Bilirubin 1.2 mg/dL (0.2-1.3) 03/08/18 06:30 AST 75 U/L (17-59) H 03/08/18 06:30 ALT 179 U/L (7-56) H 03/08/18 06:30 Alkaline Phosphatase 73 U/L (38-126) 03/08/18 06:30 Lactate Dehydrogenase 480 U/L (333-699) 03/07/18 10:30 Total Creatine Kinase 56 U/L (35-230) 03/07/18 10:30 Troponin I < 0.01 ng/mL 03/07/18 10:30 NT-Pro-B Natriuret Pep 76.4 pg/mL (0-450) 03/07/18 10:30 Total Protein 6.6 g/dL (5.8-8.3) 03/08/18 06:30 Albumin 3.8 g/dL (3.0-4.8) 03/08/18 06:30 Globulin 2.8 gm/dL 03/08/18 06:30 Albumin/Globulin Ratio 1.4 (1.1-1.8) 03/08/18 06:30 Triglycerides 104 mg/dL (35-160) 03/08/18 06:30 Cholesterol 166 mg/dL (130-200) 03/08/18 06:30 LDL Cholesterol Direct 107 mg/dL (0-129) 03/08/18 06:30 HDL Cholesterol 42 mg/dL (29-60) 03/08/18 06:30 Urine Color Yellow (YELLOW) 03/07/18 10:40 Urine Appearance Clear (CLEAR) 03/07/18 10:40 Urine pH 6.0 (4.7-8.0) 03/07/18 10:40 Ur Specific [place] 1.025 (1.005-1.035) 03/07/18 10:40 Urine Protein Negative mg/dL (<30 mg/dL) 03/07/18 10:40 Urine Glucose (UA) Negative mg/dL (NEGATIVE) 03/07/18 10:40 Urine Ketones Negative mg/dL (NEGATIVE) 03/07/18 10:40 Urine Blood Negative (NEGATIVE) 03/07/18 10:40 Urine Nitrate Negative (NEGATIVE) 03/07/18 10:40 Urine Bilirubin Negative (NEGATIVE) 03/07/18 10:40 Urine Urobilinogen 0.2 E.U./dL (<1 E.U./dL) 03/07/18 10:40 Ur Leukocyte Esterase Negative Steve/uL (NEGATIVE) 03/07/18 10:40 Hepatitis A IgM Ab Negative (NEGATIVE) 03/07/18 10:30 Hep Bs Antigen Negative (NEGATIVE) 03/07/18 10:30 Hep B Core IgM Ab Negative (NEGATIVE) 03/07/18 10:30 Hepatitis C Antibody Negative (NEGATIVE) 03/07/18 10:30 Attending/Attestation - Attestation I have personally seen and examined this patient.: Yes I have fully participated in the care of the patient.: Yes I have reviewed all pertinent clinical information, including history, physical exam and plan: Yes Notes (Text): 03/08/18 18:25 58 year old male with past medical history of hypertension and GERD who presented with complaint of chest pain. He was seen by cardiology and underwent cardiac cath yesterday which showed normal coronaries. His chest pain resolved. He was cleared for discharge by cardiology. LFTs are elevated which patient states are chronic secondary to fatty liver. Hepatitis panel was negative. Patient is discharged home to follow up with his pmd. Follow up with GI. Monitor LFTs as outpatient. Counselled on alcohol abstinence. Recommended lifestyle and diet modifications. Ayla Holliday MD Hospitalist.
== END 2018-03-08 10:27 | disposition home or self-care (01) ==
LOC: ED 10:03 → ERH 12:11 → 2RSO 15:20
PROVIDERS: ADMIT Internal Medicine; ATTEND Internal Medicine
DX: R07.89 Other chest pain (principal); K21.9 Gastro-esophageal reflux disease without esophagitis; I10 Essential (primary) hypertension; R73.03 Prediabetes; E78.00 Pure hypercholesterolemia, unspecified; K76.0 Fatty (change of) liver, not elsewhere classified; E66.9 Obesity, unspecified; Z68.37 Body mass index [BMI] 37.0-37.9, adult; Z87.891 Personal history of nicotine dependence
CPT/HCPCS: 36415; 71045; 80053; 80061; 80074; 81003; 82550; 83036; 83615; 83735; 83880; 84484; 85025; 85610; 85730; 93458; 93567; 99152; 99284; C1760; C1769; G0378; J1644; J2250; J3010; J7030; Q9966